=== PATIENT | female | born 1960 | race Two or more races ===

== ENCOUNTER 2017-05-12 08:44 | Observation (INO) | payer OTHER ==
[~2017-05-12 08:44] MED LIST: ceFAZolin SODIUM 1 GM VIAL IVPB ONE
[2017-05-12 08:49] VITALS: BMI 23.5
--- NOTE | 2017-05-12 09:24 | PDOC ---
History of Present Illness - History of Present Illness Initial Comments: 05/12/17 10:52 The patient is a 56 year old female, with a significant past medical history of recently diagnosed hydronephrosis and right sided kidney stones, who presents to the emergency department with intermittent right flank pain since last night and is associated with nausea and 1 episode of nb/nb vomiting. The patient states her pain radiates from her right flank to the right side of her back. She notes she has been having pain since february intermittently. She reports the pain has increased in severity and frequency over the past few days. She reports the pain lasts for a couple of hours and slowly resolves after taking Tylenol. She also reports burning on urination, but denies hematuria. She denies nausea at this time. She denies emesis today, but reports one episode last night. She reports seeing Dr. Ritter yesterday and was prescribed an antibiotic which she admits to starting yesterday. The patient reportedly had an abdominal CT revealing moderate hydronephrosis of the right kidney with a 4mm stone in the proximal ureter and a 9x4mm stone distally as per radiology report on 04/15/17. She denies chest pain, shortness of breath, headache and dizziness. She denies fever, diarrhea and constipation. She denies frequency, urgency and hematuria. Allergies: NKDA Past surgical history: appendectomy PMD: Dr. Flores <Radha Ramirez - Last Filed: 05/12/17 11:14> <Eulogio May - Last Filed: 05/14/17 07:35> - General Chief Complaint: Pain Stated Complaint: RT SIDE PAIN Time Seen by Provider: 05/12/17 09:02 Past History <Radha Ramirez - Last Filed: 05/12/17 11:14> - Past Medical History Other medical history: DENIES - Surgical History Appendectomy: Yes - Psycho/Social/Smoking Cessation Hx Anxiety: No Suicidal Ideation: No Smoking History: Never smoked Hx Alcohol Use: No Drug/Substance Use Hx: No Substance Use Type: None <Eulogio May - Last Filed: 05/14/17 07:35> - Past Medical History Allergies/Adverse Reactions: Allergies Allergy/AdvReac Type Severity Reaction Status Date / Time No Known Allergies Allergy Verified 05/12/17 08:49 Home Medications: Ambulatory Orders Nitrofurantoin Monohyd/M-Cryst [Macrobid -] 100 mg PO BID #12 capsule 05/13/17 Tamsulosin HCl 0.4 mg PO DAILY #14 cap.er.24h 05/13/17 Review of Systems - Review of Systems Able to Perform ROS?: Yes Comments:: 05/12/17 10:52 CONSTITUTIONAL: No reported: Fever, Diaphoresis, Generalized Weakness, Malaise, Loss of Appetite HEENT: No reported: Rhinorrhea, Nasal Congestion, Throat Pain, Throat Swelling, Difficulty Swallowing, Mouth Swelling, Ear Pain, Eye Pain, Visual Changes CARDIOVASCULAR: No reported: Chest Pain, Syncope, Palpitations, Irregular Heart Rate, Lightheadedness, Peripheral Edema RESPIRATORY: No reported: Cough, Shortness of Breath, SOB with Exertion, Orthopnea, Wheezing , Stridor, Hemoptysis GASTROINTESTINAL: (+) Vomiting, +R flank pain. No reported: Abdominal pain, Abdominal Distension, Nausea, Diarrhea, Constipation, Melena, Hematochezia GENITOURINARY: (+) Dysuria, Right Flank Pain, No reported: Frequency, Urgency, Hesitancy, Genital Pain MUSCULOSKELETAL: No reported: Myalgia, Arthralgia, Joint Swelling, Back pain, Neck Pain SKIN: No reported: Rash, Itching, Pallor HEMEATOLOGIC/IMMUNOLOGIC: No reported: Easy Bleeding, Easy Bruising, Lymphadenopathy, Frequent infections ENDOCRINE: No reported: Unexplained Weight Gain, Unexplained Weight Loss, Heat Intolerance , Cold Intolerance NEUROLOGIC: No reported: Headache, Focal Weakness, Paresthesias, Vertigo, Lightheadedness, Unsteady Gait, Seizure, Mental Status Changes, Incontinence PSYCHIATRIC: No reported: Anxiety, Depression <Radha Ramirez - Last Filed: 05/12/17 11:14> *Physical Exam - Vital Signs Last Vital Signs Temp Pulse Resp BP Pulse Ox 98.1 F 102 H 18 132/84 99 05/12/17 08:46 05/12/17 08:46 05/12/17 08:46 05/12/17 08:46 05/12/17 08:46 - Physical Exam Comments: 05/12/17 10:53 GENERAL: The patient is awake, alert, and fully oriented, Nontoxic - in no acute distress. HEAD: Normocephalic, atraumatic. EYES: extraocular movements intact, sclera anicteric, conjunctiva clear. ENT: Normal voice, Moist mucous membranes. NECK: Normal range of motion, supple LUNGS: Breath sounds equal, clear to auscultation bilaterally. No wheezes, no rhonchi, no rales. HEART: Regular rate and rhythm, without murmur, rub or gallop. ABDOMEN: Soft, nontender, normoactive bowel sounds. No guarding, no rebound.No CVA tenderness EXTREMITIES: Normal range of motion, no edema. No clubbing or cyanosis. No cords, erythema, or tenderness. NEUROLOGICAL: No facial assymetry, Normal speech, PSYCH: Normal mood, normal affect. SKIN: Warm, Dry, normal turgor <Radha Ramirez - Last Filed: 05/12/17 11:14> - Vital Signs Last Vital Signs Temp Pulse Resp BP Pulse Ox 98.1 F 102 H 18 132/84 99 05/12/17 08:46 05/12/17 08:46 05/12/17 08:46 05/12/17 08:46 05/12/17 08:46 <Eulogio May - Last Filed: 05/14/17 07:35> ED Treatment Course - LABORATORY CBC & Chemistry Diagram: 05/12/17 09:46 05/12/17 09:46 - ADDITIONAL ORDERS Additional order review: Laboratory Results 05/12/17 05/12/17 09:50 09:46 Sodium 140 Potassium 4.2 Chloride 105 Carbon Dioxide 27 Anion Gap 8 BUN 9 Creatinine 0.7 Creat Clearance w eGFR > 60 Random Glucose 82 Calcium 9.5 Total Bilirubin 0.7 AST 28 ALT 22 Alkaline Phosphatase 70 Total Protein 7.2 Albumin 3.6 Urine Color Ltyellow Urine Appearance Clear Urine pH 7.0 Urine Protein Negative Urine Glucose (UA) Negative Urine Ketones Negative Urine Blood 2+ H Urine Nitrite Negative Urine Bilirubin Negative Urine Urobilinogen Negative Ur Leukocyte Esterase Negative Urine RBC 1 Urine WBC 1 05/12/17 09:46 RBC 4.97 MCV 82.1 MCHC 32.3 RDW 13.8 MPV 7.5 Neutrophils % 59.7 Lymphocytes % 33.1 Monocytes % 6.0 Eosinophils % 0.4 Basophils % 0.8 - Medications Given in the ED: ED Medications Discontinued Medications Generic Name Dose Route Start Last Admin Trade Name Freq PRN Reason Stop Dose Admin Sodium Chloride 1,000 mls @ 1,000 mls/hr 05/12/17 09:25 05/12/17 09:46 Normal Saline - IV 05/12/17 10:24 1,000 mls/hr .Q1H ONE Administration Ketorolac Tromethamine 15 mg 05/12/17 09:25 05/12/17 09:48 Toradol Injection - IVPUSH 05/12/17 09:26 15 mg ONCE ONE Administration <Radha Ramirez - Last Filed: 05/12/17 11:14> - LABORATORY CBC & Chemistry Diagram: 05/13/17 06:00 05/13/17 06:00 <Eulogio May - Last Filed: 05/14/17 07:35> Medical Decision Making - Medical Decision Making 05/12/17 11:14 Dr. Bullock was called at the office and the patient's case was discussed. Dr. Bullock would like the patient admitted for plan procedure tomorrow. <Radha Ramirez - Last Filed: 05/12/17 11:14> - Medical Decision Making 05/12/17 10:06 56y F presents with R flank pain since this morning, pt states she has had intermittent pain since february. +dysuria No associated fever/chills,cp, back pain. on exam pt in no distress, exam unremarkable. pt with recent CT showing 4mm R kidney stone will obtian blood work, UA will give toradol, fluids will reassess and dw dr. ritter A portion of this note was documented by scribe services under my direction. I have reviewed the details of the note, within reason, and agree with the documentation with the following case summary and management plan written by me 05/12/17 11:05 case was d/w dr. Leon Acosta requests observing the pt as she will need lithrotrypsy due to persistent pain pts pain is controlled currently will observe, possible d/c after procedure requetss dose of abx due to her dysuria will give dose of ceftriaxone 05/12/17 12:[address] Diop agree with admission for further mangaement Case discussed in detail with admitting physician including history, physical exam and ancillary studies. Admitting physician has assumed care for the patient, will follow all pending diagnostics and will complete the evaluation and treatment. <Eulogio May - Last Filed: 05/14/17 07:35> *DC/Admit/Observation/Transfer - Attestations Scribe Attestion: 05/12/17 10:53 Documentation prepared by Radha Ramirez, acting as medical office secretary for Eulogio May MD <Radha Ramirez - Last Filed: 05/12/17 11:14> - Discharge Dispostion Admit: Yes <Eulogio May - Last Filed: 05/14/17 07:35> Diagnosis at time of Disposition: Kidney stone on right side, Dysuria - Discharge Dispostion Disposition: HOME Condition at time of disposition: Good - Prescriptions - Referrals
[2017-05-12] MEDS ORDERED: KETOROLAC TROMETHAMINE 30 MG/1 ML VIAL IVPUSH ONE (09:25)
[2017-05-12] MEDS ORDERED: SODIUM CHLORIDE 1,000 ML IV ONE (09:25)
[2017-05-12] MEDS ORDERED: KETOROLAC TROMETHAMINE 15 MG/ML VIAL ONE (09:39)
[2017-05-12 09:59] LABS: BASOPHIL 0.8 % (0-2.0); EOSINOPHIL 0.4 % (0-4.5); MCH 26.5 pg (25.7-33.7); MCHC 32.3 g/dl (32.0-36.0); MEAN CELL VOLUME 82.1 fl (80-96); MEAN PLT VOLUME 7.5 fl (7.5-11.1); NEUTROPHILS 59.7 % (42.8-82.8); PLATELET COUNT 334 K/MM3 (134-434); RDW 13.8 % (11.6-15.6); WHITE BLOOD COUNT 9.5 K/mm3 (4.0-10.0)
[2017-05-12 10:05] LABS: URINE APPEARANCE CLEAR; URINE BILIRUBIN NEGATIVE (NEGATIVE); URINE COLOR LTYELLOW; URINE GLUCOSE (UA) NEGATIVE (NEGATIVE); URINE KETONE NEGATIVE (NEGATIVE); URINE LEUK ESTERASE NEGATIVE (NEGATIVE); URINE NITRITE NEGATIVE (NEGATIVE); URINE PROTEIN NEGATIVE (NEGATIVE); URINE UROBILINOGEN NEGATIVE mg/dL (0.2-1.0)
[2017-05-12 10:07] LABS: URINE BLOOD 2+ (NEGATIVE)
[2017-05-12 10:08] LABS: URINE RBC 1 /hpf (0-3); URINE WBC 1 /hpf (3-5)
[2017-05-12 10:16] LABS: ALBUMIN 3.6 g/dl (3.4-5.0); ANION GAP 8 (8-16); CALCIUM 9.5 mg/dL (8.5-10.1); CO2 27 mmol/L (21-32); CREATININE 0.7 mg/dL (0.55-1.02); GLUCOSE,RANDOM 82 mg/dL (74-106); SGPT/ALT 22 U/L (12-78)
[2017-05-12 10:19] LABS: ALK PHOS 70 U/L (45-117); BILIRUBIN,TOTAL 0.7 mg/dL (0.2-1.0); TOT PROT 7.2 g/dl (6.4-8.2)
[2017-05-12 10:23] LABS: SGOT/AST 28 U/L (15-37)
[2017-05-12] MEDS ORDERED: CEFTRIAXONE 1 GM in DEXTROSE 5%-WATER - 50 ML IVPB ONE (11:07)
[2017-05-12] MEDS ORDERED: CEFTRIAXONE 50 ML ONE (11:14)
--- NOTE | 2017-05-12 11:31 | HP ---
CHIEF COMPLAINT: "My right side hurts" PCP: Dr. Flores HISTORY OF PRESENT ILLNESS: This is a 56 yo F, with PMH of R obstructing nephrolithiasis and hydronephrosis , diagnosed 04/[address] ab[address]/Pelvis by urology, revealing moderate hydronephrosis of the right kidney with a 4mm stone in the proximal ureter and a 9x4mm stone distally, who presents due to worsening R flank pain since last night. Patient reports associated with nausea with 1 episode of nb/nb vomiting as well as subjective f/c and worsening dysuria. Silvia had intermittent R flank pain radiating to R pelvis along with dysuria for 2 mo but her symptoms recentlygot worse. She saw Dr. Ritter yesterday, had a renal US and was given antibiotic, which she started yesterday. Per conversation with her urologist, she is scheduled for lithotripsy later tonight. She denies personal history of nephrolithiasis, recent weight loss, dehydration or Ca supplements. Her mother has nephrolithiasis.She denies hematuria, urgency, chest pain, shortness of breath, headache, dizziness, diarrhea, constipation. Recent Travel:denies PAST MEDICAL HISTORY:as above PAST SURGICAL HISTORY:appendectomy Social History: lives at home Smoking: denies Alcohol:denies Drugs: denies Family History: as above Allergies No Known Allergies Allergy (Verified 05/12/17 08:49) HOME MEDICATIONS: Home Medications Medication Instructions Recorded Nitrofurantoin Monohyd/M-Cryst 100 mg PO BID 05/12/17 [Macrobid -] REVIEW OF SYSTEMS CONSTITUTIONAL: Absent: malaise, loss of appetite, weight change HEENT: Absent: rhinorrhea, nasal congestion, throat pain CARDIOVASCULAR: Absent: chest pain, syncope, palpitations, irregular heart rate, lightheadedness , peripheral edema RESPIRATORY: Absent: cough, shortness of breath GASTROINTESTINAL: Absent: diarrhea, constipation, melena, hematochezia GENITOURINARY: Absent: genital pain MUSCULOSKELETAL: Absent: myalgia, arthralgia SKIN: Absent: rash, itching, pallor HEMATOLOGIC/IMMUNOLOGIC: Absent: easy bleeding, easy bruising, lymphadenopathy, frequent infections ENDOCRINE: Absent: unexplained weight gain, unexplained weight loss NEUROLOGIC: Absent: headache, focal weakness or paresthesias PSYCHIATRIC: Absent: anxiety, depression PHYSICAL EXAMINATION Vital Signs - 24 hr 05/12/17 08:46 Temperature 98.1 F Pulse Rate 102 H Respiratory 18 Rate Blood Pressure 132/84 O2 Sat by Pulse 99 Oximetry (%) GENERAL: Awake, alert, and fully oriented, in no acute distress. HEAD: Normal with no signs of trauma. EYES: Pupils equal, round and reactive to light, extraocular movements intact, sclera anicteric, conjunctiva clear. No lid lag. EARS, NOSE, THROAT: Moist mucous membranes. NECK: supple without JVD LUNGS: Breath sounds equal, clear to auscultation bilaterally HEART: Regular rate and rhythm, normal S1 and S2 ABDOMEN: Soft, nontender, not distended, normoactive bowel sounds, no guarding, no rebound, no masses. No hepatomegaly or splenomegaly. MUSCULOSKELETAL: R CVA tenderness. UPPER EXTREMITIES: 2+ pulses, warm, well-perfused. No cyanosis. No clubbing. No peripheral edema. LOWER EXTREMITIES: 2+ pulses, warm, well-perfused. No calf tenderness. No peripheral edema. NEUROLOGICAL: Cranial nerves II-XII grossly intact. Normal speech. PSYCHIATRIC: Cooperative. Good eye contact. Appropriate mood and affect. SKIN: Warm, dry Laboratory Results - last 24 hr 05/12/17 05/12/17 05/12/17 09:46 09:46 09:50 WBC 9.5 RBC 4.97 Hgb 13.2 Hct 40.8 MCV 82.1 MCH 26.5 MCHC 32.3 RDW 13.8 Plt Count 334 MPV 7.5 Neutrophils % 59.7 Lymphocytes % 33.1 Monocytes % 6.0 Eosinophils % 0.4 Basophils % 0.8 Sodium 140 Potassium 4.2 Chloride 105 Carbon Dioxide 27 Anion Gap 8 BUN 9 Creatinine 0.7 Creat Clearance w eGFR > 60 Random Glucose 82 Calcium 9.5 Total Bilirubin 0.7 AST 28 ALT 22 Alkaline Phosphatase 70 Total Protein 7.2 Albumin 3.6 Urine Color Ltyellow Urine Appearance Clear Urine pH 7.0 Urine Protein Negative Urine Glucose (UA) Negative Urine Ketones Negative Urine Blood 2+ H Urine Nitrite Negative Urine Bilirubin Negative Urine Urobilinogen Negative Ur Leukocyte Esterase Negative Urine RBC 1 Urine WBC 1 ASSESSMENT/PLAN: This is a 56 yo F, with PMH of R obstructing nephrolithiasis and hydronephrosis , diagnosed 04/[address] abd/Pelvis by urology, revealing moderate hydronephrosis of the right kidney with a 4mm stone in the proximal ureter and a 9x4mm stone distally, who presents due to worsening R flank pain since last night. Right obstructive nephrolithiasis with moderate hydronephrosis -CT abd/pelvis appreciated -patient failed medical mgmt, proceed with lithotripsy tonight by Dr Ritter -Bun/creat wnl -flomax 0.8 once, IVF, toradol -PPX rocephin, urine cultures -NPO except meds -INR, type/screen FEN NS @ 125 lytes stable npo Dispo: obs med dionte Problem List - Problem (1) Dysuria Code(s): R30.0 - DYSURIA (2) Kidney stone on right side Code(s): N20.0 - CALCULUS OF KIDNEY (3) Hydronephrosis Code(s): N13.30 - UNSPECIFIED HYDRONEPHROSIS Visit type - Emergency Visit Emergency Visit: Yes ED Registration Date: 05/12/17 Care time: The patient presented to the Emergency Department on the above date and was hospitalized for further evaluation of their emergent condition. - New Patient This patient is new to me today: Yes Date on this admission: 05/12/17 - Critical Care Critical Care patient: No
[2017-05-12] MEDS ORDERED: SODIUM CHLORIDE 1,000 ML IV SCH ×2 (11:45→12:00)
[2017-05-12] MEDS ORDERED: KETOROLAC TROMETHAMINE 15 MG/ML VIAL IVPUSH PRN (11:46)
[2017-05-12] MEDS ORDERED: TAMSULOSIN HCL 0.4 MG CAP.ER.24H (FP) PO ONE (11:51)
[2017-05-12 13:58] LABS: INR 1.44 (0.82-1.09)
--- NOTE | 2017-05-12 14:21 | PN ---
Teaching Attending Note Name of Resident: Vanda Diop ATTENDING PHYSICIAN STATEMENT I saw and evaluated the patient. I reviewed the resident's note and discussed the case with the resident. I agree with the resident's findings and plan as documented. SUBJECTIVE: Patient has no complains at this time. Patient is a 56yo F, with PMHx of Right obstructing nephrolithiasis and hydronephrosis, diagnosed 04/15/[address] abd/ Pelvis by urology, revealing moderate hydronephrosis of the right kidney with a 4mm stone in the proximal ureter and a 9x4mm stone distally,without having any symptoms but presents to ED today with worsening R flank pain since last night and started to have chills 2 days ago. Denies any urinary symptoms, no urgency or frequency. OBJECTIVE: Vital Signs Temperature 97.8 F 05/12/17 12:27 Pulse Rate 95 H 05/12/17 12:27 Respiratory Rate 20 05/12/17 12:27 Blood Pressure 124/82 05/12/17 12:27 O2 Sat by Pulse Oximetry (%) 99 05/12/17 12:08 CBCD WBC 9.5 K/mm3 (4.0-10.0) 05/12/17 09:46 RBC 4.97 M/mm3 (3.60-5.2) 05/12/17 09:46 Hgb 13.2 GM/dL (10.7-15.3) 05/12/17 09:46 Hct 40.8 % (32.4-45.2) 05/12/17 09:46 MCV 82.1 fl (80-96) 05/12/17 09:46 MCHC 32.3 g/dl (32.0-36.0) 05/12/17 09:46 RDW 13.8 % (11.6-15.6) 05/12/17 09:46 Plt Count 334 K/MM3 (134-434) 05/12/17 09:46 MPV 7.5 fl (7.5-11.1) 05/12/17 09:46 CMP Sodium 140 mmol/L (136-145) 05/12/17 09:46 Potassium 4.2 mmol/L (3.5-5.1) 05/12/17 09:46 Chloride 105 mmol/L (98-107) 05/12/17 09:46 Carbon Dioxide 27 mmol/L (21-32) 05/12/17 09:46 Anion Gap 8 (8-16) 05/12/17 09:46 BUN 9 mg/dL (7-18) 05/12/17 09:46 Creatinine 0.7 mg/dL (0.55-1.02) 05/12/17 09:46 Creat Clearance w eGFR > 60 (>60) 05/12/17 09:46 Random Glucose 82 mg/dL (74-106) 05/12/17 09:46 Calcium 9.5 mg/dL (8.5-10.1) 05/12/17 09:46 Total Bilirubin 0.7 mg/dL (0.2-1.0) 05/12/17 09:46 AST 28 U/L (15-37) 05/12/17 09:46 ALT 22 U/L (12-78) 05/12/17 09:46 Alkaline Phosphatase 70 U/L (45-117) 05/12/17 09:46 Total Protein 7.2 g/dl (6.4-8.2) 05/12/17 09:46 Albumin 3.6 g/dl (3.4-5.0) 05/12/17 09:46 Current Medications Generic Name Dose Route Start Last Admin Trade Name Freq PRN Reason Stop Dose Admin Sodium Chloride 1,000 mls @ 125 mls/hr 05/12/17 12:00 05/12/17 13:22 Normal Saline - IV 125 mls/hr ASDIR TIM Administration Ceftriaxone Sodium 50 mls @ 100 mls/hr 05/13/17 10:00 Rocephin 1gm Ivpb (Pre-Docked) IVPB DAILY TIM Ketorolac Tromethamine 15 mg 05/12/17 11:46 Toradol Injection - IVPUSH 05/17/17 11:45 Q6H PRN PAIN Home Medications Medication Instructions Recorded Nitrofurantoin Monohyd/M-Cryst 100 mg PO BID 05/12/17 [Macrobid -] PE: Abdomen: No CVA tenderness rest PE per resident's notes. ASSESSMENT AND PLAN: This is a 56 yo F, with PMHx of appendectomy , Right obstructing nephrolithiasis and hydronephrosis, diagnosed 04/[address] abd/Pelvis by urology , revealing moderate hydronephrosis of the right kidney with a 4mm stone in the proximal ureter and a 9x4mm stone distally, who presents due to worsening R flank pain since last night. #Acute Right obstructive nephrolithiasis with moderate hydronephrosis 4mm stone in the proximal ureter and a 9x4mm stone distally IVF, NPO, urology consult for lithotripsy possible tonight by Dr Ritter , on flomax 0.8 x 1 dose given, toradol IV ,Px Rocephin, urine cultures NPO except meds , INR, type/screen. DVT Px: SCds
--- NOTE | 2017-05-12 14:43 | HP ---
CHIEF COMPLAINT: Right flank pain PCP: Dr. Juan Flores, Dr Delfin Mccarthy HISTORY OF PRESENT ILLNESS: Pt states she had pressure-like R flank pain rated 7/10, which began Sat evening and has been progressively worsening. She has had this pain in the past. She saw Dr. Mccarthy who did a CT and discovered kidney stones in March. Her pain was associated with subjective fever, chills, and one episode of nonbloody nonbilious vomiting. It is worse with prolonged standing, and she has taken "2 pills" of Tylenol three times. Per the ED note, pt saw Dr. Ritter yesterday as an outpatient and was started on "an antibiotic". She had an abdominal CT in March, and another one yesterday, which showed moderate hydro, a proximal 4mm stone, a distal 9x4mm stone, a hypodense lesion of the tail of the pancreas, and a hepatic cyst. She was sent to the hospital for a scheduled lithotripsy this evening. ER course was notable for: (1)vital signs, CBC, CMP all within normal limits (2) UA pos for 2+ blood, 1 RBC, 1 WBC (3)Recieved NS @ 125, Rocephin 1gm, Toradol 15mg PRN Recent Travel: [place] last June PAST MEDICAL HISTORY: Denies PAST SURGICAL HISTORY: Appendectomy, Tubal ligation Social History: Smoking: Denies Alcohol: Denies Drugs: Denies Family History: Denies Allergies No Known Allergies Allergy (Verified 05/12/17 08:49) HOME MEDICATIONS: Home Medications Medication Instructions Recorded Nitrofurantoin Monohyd/M-Cryst 100 mg PO BID 05/12/17 [Macrobid -] REVIEW OF SYSTEMS CONSTITUTIONAL: Absent: fever, chills, diaphoresis, generalized weakness, malaise, loss of appetite, weight change HEENT: Absent: rhinorrhea, nasal congestion, throat pain, throat swelling, difficulty swallowing, mouth swelling, ear pain, eye pain, visual changes CARDIOVASCULAR: Absent: chest pain, syncope, palpitations, irregular heart rate, lightheadedness , peripheral edema RESPIRATORY: Absent: cough, shortness of breath, dyspnea with exertion, orthopnea, wheezing, stridor, hemoptysis GASTROINTESTINAL: Absent: abdominal pain, abdominal distension, nausea, vomiting, diarrhea, constipation, melena, hematochezia GENITOURINARY: flank pain Absent: dysuria, frequency, urgency, hesitancy, hematuria, genital pain MUSCULOSKELETAL: Absent: myalgia, arthralgia, joint swelling, back pain, neck pain SKIN: Absent: rash, itching, pallor HEMATOLOGIC/IMMUNOLOGIC: Absent: easy bleeding, easy bruising, lymphadenopathy, frequent infections ENDOCRINE: Absent: unexplained weight gain, unexplained weight loss, heat intolerance, cold intolerance NEUROLOGIC: Absent: headache, focal weakness or paresthesias, dizziness, unsteady gait, seizure, mental status changes, bladder or bowel incontinence PSYCHIATRIC: Absent: anxiety, depression, suicidal or homicidal ideation, hallucinations. PHYSICAL EXAMINATION Vital Signs - 24 hr 05/12/17 05/12/17 12:08 12:27 Temperature 97.8 F 97.8 F Pulse Rate 73 Pulse Rate [ 95 H Apical] Respiratory 16 20 Rate Blood Pressure 113/71 Blood Pressure 124/82 [Right Arm] O2 Sat by Pulse 99 Oximetry (%) GENERAL: AAOx3 HEAD: Normal with no signs of trauma. EYES: Pupils equal, round and reactive to light, extraocular movements intact, sclera anicteric, conjunctiva clear. No lid lag. EARS, NOSE, THROAT: oropharynx clear without exudates. Moist mucous membranes. Palate elevates equally. No tongue deviation NECK: Normal range of motion, supple without lymphadenopathy, JVD, or masses. LUNGS: Breath sounds equal, clear to auscultation bilaterally. No wheezes, and no crackles. No accessory muscle use. HEART: Regular rate and rhythm, normal S1 and S2 without murmur, rub or gallop. ABDOMEN: Soft, nontender, not distended, normoactive bowel sounds, no guarding, no rebound, no masses. No hepatomegaly or splenomegaly. neg for Flank tenderness on percussion MUSCULOSKELETAL: Normal range of motion at all joints. No bony deformities or tenderness. No CVA tenderness. UPPER EXTREMITIES: 2+ pulses, warm, well-perfused. No cyanosis. No clubbing. No peripheral edema. LOWER EXTREMITIES: 2+ pulses, warm, well-perfused. No calf tenderness. No peripheral edema. NEUROLOGICAL: Cranial nerves II-XII intact. Normal speech. Normal gait. 5/5 strength in shoulder abduction, elbow flexion/extension, hip flexion, knee flexion/extension, dorsiflexion/plantar flexion. 2+ reflexes PSYCHIATRIC: Cooperative. Good eye contact. Appropriate mood and affect. SKIN: Warm, dry, normal turgor, no rashes or lesions noted, normal capillary refill. Laboratory Results - last 24 hr 05/12/17 13:30 INR 1.44 H ASSESSMENT/PLAN: #Nephrolithiasis w/ hydronephrosis -In ED: CBC (WNL), CMP(WNL), UA (2+ blood, 1 RBC, 1 WBC), Rocephin 1gm, Tramadol 15mg IV push once -NS @ 1,000 ml/hr -Tamsulosin .8mg PO once -Lithotripsy procedure scheduled #FEN -on NS 1L/hr -lytes WNL -NPO until procedure #Dispo -Admit to Med/Surg for lithotripsy PCP: Dr. Juan Alva Pharmacy: [facility] Visit type - Emergency Visit Emergency Visit: No - New Patient This patient is new to me today: No - Critical Care Critical Care patient: No
--- NOTE | 2017-05-12 14:47 | EKG ---
Test Reason : Blood Pressure : / mmHG Vent. Rate : 068 BPM Atrial Rate : 068 BPM P-R Int : 168 ms QRS Dur : 080 ms QT Int : 398 ms P-R-T Axes : 075 078 072 degrees QTc Int : 423 ms NORMAL SINUS RHYTHM WITH SINUS ARRHYTHMIA NORMAL ECG WHEN COMPARED WITH ECG OF 20-JAN-1999 13:15, NO SIGNIFICANT CHANGE WAS FOUND Confirmed by REINA KURTZ MD ([id number]) on 05/12/2017 2:46:46 PM Referred By: Confirmed By:REINA KURTZ MD
[2017-05-12] MEDS ORDERED: HYDROmorphone HCL CARPU-JECT 1 MG/1 ML DISP.SYRIN IVPUSH PRN (19:55)
[2017-05-12] MEDS ORDERED: ONDANSETRON 4 MG/2 ML VIAL IVPUSH PRN (19:55)
[2017-05-12] MEDS ORDERED: PROPOFOL 20 ML ONE ×2 (19:58→20:24)
[2017-05-12] MEDS ORDERED: LIDOCAINE HCL/PF 2% SDV 5ML VIAL ONE (19:58)
[2017-05-12] MEDS ORDERED: DEXAMETHASONE SOD PHOSPHATE 4 MG/1 ML VIAL ONE (19:58)
--- NOTE | 2017-05-12 20:17 | CONSULT ---
Consult - text type - Consultation Consultation Note: CC Right renal colic and right ureteral stone with high grade obstruction hpi: patient with high grade obstruction with uti on antibiotics. Patient is currntly afebrile on antibiotics. Patient with severe pain pe right cvat imp right ureteral obstruction secondary to two ureteral stones uti plan patient is emergently taken to the OR due to high risk of urosepsis
--- NOTE | 2017-05-12 20:42 | OP ---
Operative Note - Note: Operative Date: 05/12/17 Pre-Operative Diagnosis: uti/right ureteral stone with hydronephrosis Operation: cysto/right retrograde pyelogram/right ureteroscopic stone manipulation/right ureteral stent placement Post-Operative Diagnosis: Same as Pre-op Surgeon: Elías Bullock Anesthesia: General
[2017-05-12] MEDS: NITROFURANTOIN MACROCRYSTAL 50 MG CAPSULE (FP) PO SCH (23:22)
[2017-05-13] MEDS: NITROFURANTOIN MACROCRYSTAL 50 MG CAPSULE (FP) PO SCH (06:19)
[2017-05-13 07:26] LABS: MCHC 32.9 g/dl (32.0-36.0); MEAN PLT VOLUME 7.7 fl (7.5-11.1); PLATELET COUNT 324 K/MM3 (134-434); RDW 13.7 % (11.6-15.6); WHITE BLOOD COUNT 8.4 K/mm3 (4.0-10.0)
[2017-05-13 07:28] LABS: ANION GAP 9 (8-16); CO2 27 mmol/L (21-32); GLUCOSE,RANDOM 99 mg/dL (74-106); MAGNESIUM 1.9 mg/dL (1.8-2.4)
[2017-05-13 07:29] LABS: CREATININE 0.6 mg/dL (0.55-1.02); PHOSPHOROUS 3.9 mg/dL (2.5-4.9)
[2017-05-13 07:31] VITALS: TEMP 98
[2017-05-13 09:10] VITALS: BP 120/72; PULSE 77
[2017-05-13] MEDS ORDERED: CEFTRIAXONE 50 ML IVPB SCH ×2 (10:00)
--- NOTE | 2017-05-13 10:32 | PN ---
Teaching Attending Note Name of Resident: Torres Angel ATTENDING PHYSICIAN STATEMENT I saw and evaluated the patient. I reviewed the resident's note and discussed the case with the resident. I agree with the resident's findings and plan as documented. SUBJECTIVE: Patient is comfortable with no acute distress. No fever or chills, no shortness of breath. no further pain. OBJECTIVE: Vital Signs Temperature 98.0 F 05/13/17 09:08 Pulse Rate 77 05/13/17 09:08 Respiratory Rate 18 05/13/17 09:08 Blood Pressure 120/72 05/13/17 09:08 O2 Sat by Pulse Oximetry (%) 98 05/13/17 03:48 CBCD WBC 8.4 K/mm3 (4.0-10.0) 05/13/17 06:00 RBC 5.02 M/mm3 (3.60-5.2) 05/13/17 06:00 Hgb 13.6 GM/dL (10.7-15.3) 05/13/17 06:00 Hct 41.1 % (32.4-45.2) 05/13/17 06:00 MCV 82.0 fl (80-96) 05/13/17 06:00 MCHC 32.9 g/dl (32.0-36.0) 05/13/17 06:00 RDW 13.7 % (11.6-15.6) 05/13/17 06:00 Plt Count 324 K/MM3 (134-434) 05/13/17 06:00 MPV 7.7 fl (7.5-11.1) 05/13/17 06:00 CMP Sodium 141 mmol/L (136-145) 05/13/17 06:00 Potassium 4.1 mmol/L (3.5-5.1) 05/13/17 06:00 Chloride 105 mmol/L (98-107) 05/13/17 06:00 Carbon Dioxide 27 mmol/L (21-32) 05/13/17 06:00 Anion Gap 9 (8-16) 05/13/17 06:00 BUN 9 mg/dL (7-18) 05/13/17 06:00 Creatinine 0.6 mg/dL (0.55-1.02) 05/13/17 06:00 Creat Clearance w eGFR > 60 (>60) 05/12/17 09:46 Random Glucose 99 mg/dL (74-106) D 05/13/17 06:00 Calcium 9.0 mg/dL (8.5-10.1) 05/13/17 06:00 Total Bilirubin 0.7 mg/dL (0.2-1.0) 05/12/17 09:46 AST 28 U/L (15-37) 05/12/17 09:46 ALT 22 U/L (12-78) 05/12/17 09:46 Alkaline Phosphatase 70 U/L (45-117) 05/12/17 09:46 Total Protein 7.2 g/dl (6.4-8.2) 05/12/17 09:46 Albumin 3.6 g/dl (3.4-5.0) 05/12/17 09:46 Current Medications Generic Name Dose Route Start Last Admin Trade Name Freq PRN Reason Stop Dose Admin Hydromorphone HCl 1 mg 05/12/17 19:55 Dilaudid Injection - IVPUSH 05/15/17 19:56 [id number] PRN PAIN Ceftriaxone Sodium 50 mls @ 100 mls/hr 05/13/17 10:00 05/13/17 09:14 Rocephin 1gm Ivpb (Pre-Docked) IVPB 100 mls/hr DAILY TIM Administration Ketorolac Tromethamine 15 mg 05/12/17 11:46 05/13/17 08:50 Toradol Injection - IVPUSH 05/17/17 11:45 15 mg Q6H PRN Administration PAIN Nitrofurantoin Macrocrystals 50 mg 05/13/17 00:00 05/13/17 06:19 Macrodantin - PO 50 mg Q6HPO TIM Administration PE: per resident's note ASSESSMENT AND PLAN: This is a 56 yo Female with PMHx of appendectomy , Right obstructing nephrolithiasis and hydronephrosis, diagnosed 04/[address] abd/Pelvis by urology , revealing moderate hydronephrosis of the right kidney with a 4mm stone in the proximal ureter and a 9x4mm stone distally, who presents due to worsening R flank pain since last night. #POD #1 Acute Right obstructive nephrolithiasis with moderate hydronephrosis 4mm stone in the proximal ureter and a 9x4mm stone distally on IV antibiotics Rocephin , seen by ; Urologist and patient went for cysto/right retrograde pyelogram/right ureteroscopic stone manipulation/right ureteral stent placement. Patient will be discharged today and Follow with Anu on Wednesday the 18 of May. Patient is being discharged home on oral antibiotics Macrobid 100mg 2x per day x 6 more days. will discharge her with Macrobid 100mg po bid. x 6 more days. follow up with on 18 of May. Patient has an appointment with .
--- NOTE | 2017-05-13 14:53 | MSN ---
Progress Note (short form) - Note Progress Note: History of Admission #Nephrolithiasis with hydronephrosis 05/12/2017 * Presented to the emergency department with intermittent right flank pain, nausea, vomiting, and worsening dysuria * Renal ultrasound on 04/15/2017 revealed hydronephrosis with a 4mm stone in the proximal ureter and a 9x4mm stone in the distal ureter * Dr. Martinez saw the patient the day prior, and recommended lithotrypsy and antibiotics for possible infection * Decision was made to admit the patient * Administered tamsulosin, ceftriaxone, Toradol, and IV fluids * NPO except for medications * Dr. Martinez performed retrograde pyelogram, stone removal, stent placement 05/13/2017 * Urine culture was negative * Patient was alert and orientedx3 c/o frequency, dysuria, hematuria and pain * Patient discharged with antibiotics and tamsulosin
--- NOTE | 2017-05-13 15:59 | DS ---
Physical Exam: SUBJECTIVE: Patient seen and examined at bedside. No complaints at this time. Pt admits to urinary frequency, burning, and small amounts of blood. No other complaints. Pt feels well. OBJECTIVE: Vital Signs Period Temp Pulse Resp BP Sys/Kolb Pulse Ox Last 24 Hr 97 F-98.6 F 54-88 16-20 102-121/45-75 97-98 PHYSICAL EXAM GENERAL: The patient is awake, alert, and fully oriented, in no acute distress. HEAD: Normal with no signs of trauma. EYES: sclera anicteric, conjunctiva clear. ENT: oropharynx clear without exudates, moist mucous membranes. NECK: Trachea midline, full range of motion, supple. LUNGS: Breath sounds equal, clear to auscultation bilaterally, no wheezes, no crackles, no accessory muscle use. HEART: Regular rate and rhythm, normal S1, S2 without murmur, rub or gallop. ABDOMEN: Soft, nontender, nondistended, normoactive bowel sounds, no guarding, no rebound, no hepatosplenomegaly, no masses. EXTREMITIES: 2+ pulses, warm, well-perfused, no edema. NEUROLOGICAL: Cranial nerves II through XII grossly intact. Normal speech, gait not observed. PSYCH: Normal mood, normal affect. SKIN: Warm, dry, normal turgor, no rashes or lesions noted. LABS Laboratory Results - last 24 hr 05/13/17 05/13/17 06:00 06:00 WBC 8.4 RBC 5.02 Hgb 13.6 Hct 41.1 MCV 82.0 MCH 27.0 MCHC 32.9 RDW 13.7 Plt Count 324 MPV 7.7 Sodium 141 Potassium 4.1 Chloride 105 Carbon Dioxide 27 Anion Gap 9 BUN 9 Creatinine 0.6 Random Glucose 99 D Calcium 9.0 Phosphorus 3.9 Magnesium 1.9 HOSPITAL COURSE: Date of Admission:05/12/17 Date of Discharge: 05/13/17 This is a 56 y/o F who presented to the ED with right flank pain radiating to the groin in the setting of known obstructive kidney stone and hydronephrosis. She was admitted for lithotripsy. She presented to Dr. Bullock prior to admission with worsening flank pain, frequency, dysuria, and hematuria. Renal U/ S and CT abdomen revealed a 4mm stone in the proximal and a 9 mm stone in the distal ureter. On presentation in the ED, the patient admitted to similar symptoms. She was given pain medication, fluids, tamsulosin and made NPO except meds. Dr. Martinez performed retrograde pyelogram, stone removal, stent placement. U culture was neg. The patient is stable for discharge home. Minutes to complete discharge: 45 Discharge Summary Reason For Visit: DYSURIA,CALCULUS OF R KIDNEY Condition: Good - Instructions Diet, Activity, Other Instructions: You were admitted for evaluation and treatment of right kidney stones- had lithotripxy done along with stent. We are sending you on antibioitics- Macrobid 100mg BID. Follow up with Primary doctor and Dr. Bullock in a week. If you experience severe flank pain, abdominal pain, fevers, chillls, rigors, sweating or any other symptoms please return to the Emergency Department immediately. Referrals: Juan Flores MD [Primary Care Provider] - 1 Week Elías Bullock MD [Staff Physician] - 1 Week Disposition: HOME - Home Medications Comprehensive Discharge Medication List: Ambulatory Orders Nitrofurantoin Monohyd/M-Cryst [Macrobid -] 100 mg PO BID #12 capsule 05/13/17 Tamsulosin HCl 0.4 mg PO DAILY #14 cap.er.24h 05/13/17 This patient is new to me today: Yes Date on this admission: 05/14/17 Emergency Visit: No Critical Care patient: No - Discharge Referral Referred to [facility] No
--- NOTE | 2017-05-13 16:20 | OP ---
DATE OF OPERATION: 05/12/2017 PREOPERATIVE DIAGNOSES: Right hydronephrosis with urinary tract infection. POSTOPERATIVE DIAGNOSES: Right hydronephrosis with urinary tract infection. PROCEDURE: Cystoscopy, right retrograde pyelogram, right ureteroscopic stone manipulation, and stent placement. ATTENDING: Jose Urban MD ANESTHESIA: General. DESCRIPTION OF OPERATION: The patient was brought in the operating room, placed in supine position on the operating room table. General anesthesia was administered. At this point, the patient was placed in the dorsal lithotomy position and prepped and draped in the usual sterile manner. Patient had received Rocephin on the floor prior to bringing to the operating room. A cystoscopy was performed. No evidence of stones within the bladder was noted. No evidence of tumors or dysplasia was seen. An open-ended catheter was utilized, and a retrograde pyelogram performed. An upper ureteral obstruction consistent with a 5 x 9 mm stone was noted. At this point, a wire was attempted to be passed proximally. The stone prevented the wire from passing into the proximal ureter and renal pelvis. Ureteroscopy was taken to the level of the stone. At this point, with water pressure and direct visualization of an opening to the medial aspect of the stone, a wire was placed with difficulty. With the wire inserted, the stone was manipulated. The stone migrated into the lower pole calyx. Because of the patient's urinary tract infection, further manipulation within the kidney was contraindicated. The ureteroscope was removed. A 6-Greek 24-cm stent was placed over the wire utilizing the Seldinger technique. No complications were noted. No evidence of extravasation of Hypaque was seen. The instruments were withdrawn. The disposition of the patient was to recovery room. No complications were noted. JOSE URBAN M.D. [id number]
== END 2017-05-13 10:51 | disposition home or self-care (01) ==
LOC: JER 08:44 → JERBED 11:08 → J5S 13:09
PROVIDERS: ADMIT Internal Medicine; ATTEND Internal Medicine
PROC: 3E03329 Introduction of Other Anti-infective into Peripheral Vein, Percutaneous Approach (ICD-10-PCS; 2017-05-12)
PROC: 3E0333Z Introduction of Anti-inflammatory into Peripheral Vein, Percutaneous Approach (ICD-10-PCS; 2017-05-12)
PROC: 3E0337Z Introduction of Electrolytic and Water Balance Substance into Peripheral Vein, Percutaneous Approach (ICD-10-PCS; 2017-05-12)
PROC: 0T7D8DZ Dilation of Urethra with Intraluminal Device, Via Natural or Artificial Opening Endoscopic (ICD-10-PCS; principal; 2017-05-12 18:00)
PROC: BT1DZZZ Fluoroscopy of Right Kidney, Ureter and Bladder (ICD-10-PCS; 2017-05-12 18:00)
DX: N13.2 Hydronephrosis with renal and ureteral calculous obstruction (principal); N39.0 Urinary tract infection, site not specified; R30.0 Dysuria
CPT/HCPCS: 36415; 52282; 52330; 76000-TC; 80048; 80053; 81003; 81015; 83735; 84100; 85025; 85027; 85610; 86850; 86900; 86901; 87086; 93005; 93010; 94760; 96361; 96365; 96367; 96375; 99285-25; G0378

== ENCOUNTER 2017-06-21 08:02 | Day surgery (SDC) | payer OTHER ==
[2017-06-18 16:16] VITALS: BMI 25.0
[~2017-06-21 08:02] MED LIST changes: +LEVOFLOXACIN 500 MG PREMIX BAG IVPB ONE; -ceFAZolin SODIUM 1 GM VIAL IVPB ONE
[2017-06-21] MEDS ORDERED: ONDANSETRON 4 MG/2 ML VIAL IVPUSH PRN (08:56)
[2017-06-21] MEDS ORDERED: oxyCODONE HCL 5 MG TABLET PO PRN (08:56)
[2017-06-21] MEDS ORDERED: LACTATED RINGERS SOLUTION 1,000 ML IV SCH (09:00)
[2017-06-21] MEDS ORDERED: PROPOFOL 20 ML ONE ×3 (09:15→09:41)
[2017-06-21] MEDS ORDERED: MIDAZOLAM HCL 2 MG/2 ML SINGLE DOSE VIAL ONE (09:15)
[2017-06-21] MEDS ORDERED: SUCCINYLCHOLINE CHLORIDE 200 MG/10 ML VIAL ONE (09:15)
[2017-06-21] MEDS ORDERED: LEVOFLOXACIN 500 MG IVPB 100 ML IVPB ONE (09:17)
[2017-06-21] MEDS ORDERED: LEVOFLOXACIN 500 MG PREMIX BAG IVPB ONE (09:20)
[2017-06-21 10:35] VITALS: TEMP 97.8
[2017-06-21 11:17] VITALS: BP 109/68; PULSE 58
--- NOTE | 2017-06-21 15:39 | OP ---
Operative Note - Note: Operative Date: 06/21/17 Pre-Operative Diagnosis: right renal stone Operation: right eswl Findings: 8mm x 6mm right renal stone Post-Operative Diagnosis: Same as Pre-op Surgeon: Elías Bullock Anesthesia: General Operative Report Dictated: Yes
--- NOTE | 2017-06-22 09:17 | OP ---
DATE OF OPERATION: 06/21/2017 PREOPERATIVE DIAGNOSIS: Right renal stone. POSTOPERATIVE DIAGNOSIS: Right renal stone. PROCEDURE: Right extracorporeal shock wave lithotripsy. ATTENDING SURGEON: Jose Urban MD ANESTHESIA: Fractional. DESCRIPTION OF OPERATION: The patient was brought in the operating room, placed in supine position on the operating room table. Ultrasonography and fluoroscopy were performed. A right renal stent was noted to be in good position. An 8 mm x 6 mm right renal stone was identified. The stone was noted to be in the renal pelvis. Fractional anesthesia was then administered as well as antibiotics; 2000 impulses at 20 joules of power were administered to the stone, and excellent fragmentation was noted. The patient tolerated the procedure very well. No complications were noted. The disposition of the patient was to the recovery room. OJSE URBAN M.D. [id number]
== END 2017-06-21 11:21 | disposition home or self-care (01) ==
LOC: JASU-SURG 08:02
PROVIDERS: ATTEND Urology
PROC: 0TF3XZZ Fragmentation in Right Kidney Pelvis, External Approach (ICD-10-PCS; principal; 2017-06-21 09:30)
DX: N20.0 Calculus of kidney (principal)
CPT/HCPCS: 94760

== ENCOUNTER 2021-08-25 04:39 | Day surgery (SDC) | payer OTHER ==
[2021-08-25 09:53] VITALS: BMI 25.6
[2021-08-25] MEDS ORDERED: MIDAZOLAM HCL 2 MG/2 ML SINGLE DOSE VIAL ONE (11:33)
[2021-08-25] MEDS ORDERED: KETOROLAC TROMETHAMINE 30 MG/1 ML VIAL ONE (14:18)
[2021-08-25] MEDS ORDERED: PROPOFOL 20 ML ONE (14:18)
[2021-08-25 16:38] VITALS: TEMP 97.8
[2021-08-25 16:44] VITALS: BP 127/69; PULSE 70
== END 2021-08-25 16:30 | disposition home or self-care (01) ==
LOC: JASU-SURG 04:39
PROVIDERS: ATTEND Urology
PROC: 0TF4XZZ Fragmentation in Left Kidney Pelvis, External Approach (ICD-10-PCS; principal; 2021-08-25 12:00)
DX: N20.0 Calculus of kidney (principal)

== ENCOUNTER 2022-01-02 00:23 | Emergency (ER) | payer OTHER ==
[2022-01-02 00:40] VITALS: BMI 24.1
[2022-01-02] MEDS ORDERED: SODIUM CHLORIDE 0.9% 1000 ML INFUS.BAG IV ONE (00:48)
[2022-01-02 00:54] LABS: EPI CELLS >36 /uL (0-25.1); HYALINE CASTS 7 /uL (0-3.1); URINE APPEARANCE CLEAR; URINE BACTERIA 22 /uL (0-1359); URINE BILIRUBIN NEGATIVE (NEGATIVE); URINE COLOR RED; URINE GLUCOSE (UA) NEGATIVE (NEGATIVE); URINE KETONE NEGATIVE (NEGATIVE); URINE LEUK ESTERASE 1+ (NEGATIVE); URINE NITRITE NEGATIVE (NEGATIVE); URINE PROTEIN 3+ (NEGATIVE); URINE RBC 1565 /uL (0-23.9); URINE UROBILINOGEN 0.2 mg/dL (0.2-1.0); URINE WBC 177 /uL (0-25.8)
[2022-01-02] MEDS ORDERED: PHENAZOPYRIDINE HCL 100 MG TABLET (FP) PO ONE (00:54)
[2022-01-02] MEDS ORDERED: PHENAZOPYRIDINE HCL 100 MG TABLET (FP) ONE (00:54)
[2022-01-02] MEDS ORDERED: CEFTRIAXONE 1 GM in DEXTROSE 5%-WATER - 100 ML IVPB ONE (01:08)
[2022-01-02 01:11] LABS: BASO % 0.8 % (0-2.0); EOS % 0.2 % (0-4.5); HEMOGLOBIN 14.8 GM/dL (10.7-15.3); LYMPH % 26.3 % (8-40); MCH 26.9 pg (25.7-33.7); MCHC 32.9 g/dl (32.0-36.0); NEUT % 66.7 % (42.8-82.8); PLATELET COUNT 300 10^3/uL (134-434); RBC 5.48 M/mm3 (3.60-5.2); RDW 13.8 % (11.6-15.6)
[2022-01-02] MEDS ORDERED: CEFTRIAXONE 1 GM/50 ML BAG ONE (01:16)
[2022-01-02 01:29] LABS: CALCIUM 9.5 mg/dL (8.5-10.1)
[2022-01-02 01:30] LABS: ALBUMIN 4.1 g/dl (3.4-5.0); BLOOD UREA NITROGEN 6.9 mg/dL (7-18)
[2022-01-02 01:33] LABS: CREATININE 0.9 mg/dL (0.55-1.3)
[2022-01-02 01:35] LABS: BILIRUBIN,TOTAL 0.9 mg/dL (0.2-1); TOT PROT 7.4 g/dl (6.4-8.2)
[2022-01-02] MEDS ORDERED: LACTATED RINGERS SOLUTION 1000 ML INFUS.BAG IV ONE (02:08)
[2022-01-02] MEDS ORDERED: KETOROLAC TROMETHAMINE 15 MG/ML VIAL IVPUSH ONE (02:37)
[2022-01-02] MEDS ORDERED: KETOROLAC TROMETHAMINE 15 MG/ML VIAL ONE (02:38)
[2022-01-02 03:48] VITALS: BP 121/80; PULSE 91; TEMP 99.8
[2022-01-02] MEDS ORDERED: ACETAMINOPHEN 500 MG TABLET (FP) PO ONE (03:48)
[2022-01-02] MEDS ORDERED: ACETAMINOPHEN 325 MG TABLET (FP) ONE (03:53)
== END 2022-01-02 04:04 | disposition home or self-care (01) ==
LOC: JER 00:23
PROC: 3E033GC Introduction of Other Therapeutic Substance into Peripheral Vein, Percutaneous Approach (ICD-10-PCS; principal; 2022-01-02)
PROC: 3E0333Z Introduction of Anti-inflammatory into Peripheral Vein, Percutaneous Approach (ICD-10-PCS; 2022-01-02)
DX: N39.0 Urinary tract infection, site not specified (principal)
CPT/HCPCS: 36415; 76775-TC; 80053; 81003; 85025; 87086; 99284-25